=== PATIENT | male | born 1960 | race Caucasian/White ===

== ENCOUNTER 2017-07-06 11:19 | Emergency (ER) | payer MEDICAID ==
[~2017-07-06] VITALS: Ht 165.1 cm; Wt 75.0 kg
[~2017-07-06 11:19] MED LIST: LORT5TAB PO; SOMA350T PO; XANAX PO
[2017-07-06 11:49] VITALS: BP 120/66; PULSE 85; RESP 16; TEMP 97.8; O2SAT 100
--- NOTE | 2017-07-06 12:51 | PD ---
HPI Chief Complaint: Suicide Ideation/Attempt Time Seen by Provider: 12:42 Travel History International Travel<30 days: No Contact w/Intl Traveler<30days: No History of Present Illness HPI 57 YO M with PHM of CVA, HTN, chronic back pain presents to the ED under [facility] from [facility] for psychiatric evaluation. According to the Talya the patient stated that he wished to end his life with a gun but would not be able to do it because of problems with his hands. He also stated that if he went home to [place] he would fall into the water intentionally and round. On presentation the patient denies suicidal or homicidal ideation. He denies psychiatric history. He states he's never attempted suicide in the past. He states that "my family is trying to control my life" and that is why he is at the hospital. He denies somatic complaints. He endorses using "any" illicit drugs. He endorses chronic alcohol use. He is a current smoker. PFSH Past Medical History Arthritis: Yes Anxiety: Yes High Cholesterol: Yes Cerebrovascular Accident: Yes (HX OF 2 STROKES) Coronary Artery Disease: Yes Diminished Hearing: No Herniated Disk: Yes Hypertension: Yes Psychiatric: Yes Immunizations Current: Yes Past Surgical History Other Surgery: Yes (CORODID ARTERY SURGERY ) Social History Alcohol Use: Yes Tobacco Use: Yes Substance Use: Yes Allergies-Medications (Allergen,Severity, Reaction): Coded Allergies: No Known Allergies (Verified Adverse Reaction, Unknown, 07/06/17) Reported Meds & Prescriptions Reported Meds & Active Scripts Active Reported Soma (Carisoprodol) 350 Mg Tab 350 Mg PO TID Lortab 5/500 (Acetaminophen/Hydrocodone Bitart) 5 Mg/500 Mg Tab 1 Tab PO 5 TIMES A DAY FOR PAIN [Xanax] 2 Mg PO QID Review of Systems ROS Limitations: Other: (seen in ambulance [facility]) Except as stated in HPI: all other systems reviewed are Neg Physical Exam Exam Limitations: Other: (seen in the ambulance [facility], exam limited due to privacy issues) Narrative GENERAL: Well-nourished, well-developed white male in no acute distress. PSYCHIATRIC: No delusional thought processes. No hallucinations. SKIN: Focused skin assessment warm/dry. HEAD: Normocephalic. EYES: No scleral icterus. No injection or drainage. NECK: Supple, trachea midline. No JVD or lymphadenopathy. CARDIOVASCULAR: Regular rate and rhythm without murmurs, gallops, or rubs. RESPIRATORY: Breath sounds equal bilaterally. No accessory muscle use. GASTROINTESTINAL: Abdomen soft, non-tender, nondistended. Active bowel sounds MUSCULOSKELETAL: No cyanosis, or edema. NEURO: [place], baseline. Moves extremities spontaneously, residual right- sided weakness secondary to CVA. BACK: Nontender without obvious deformity. No CVA tenderness. Data Data Last Documented VS Vital Signs Date Time Temp Pulse Resp B/P (MAP) Pulse Ox O2 Delivery O2 Flow Rate FiO2 07/06/17 11:49 97.8 85 16 120/66 (84) 100 Room Air Orders Orders Complete Blood Count With Diff (07/06/17 11:49) Comprehensive Metabolic Panel (07/06/17 11:49) Thyroid Stimulating Hormone (07/06/17 11:49) Psych Screen (07/06/17 11:49) Drug Screen, Random Urine (07/06/17 11:49) Alcohol (Ethanol) (07/06/17 11:49) Diet Heart Healthy (07/06/17 Dinner) Labs Laboratory Tests Test 07/06/17 17:25 White Blood Count 8.3 TH/MM3 Red Blood Count 4.05 MIL/MM3 Hemoglobin 13.2 GM/DL Hematocrit 37.8 % Mean Corpuscular Volume 93.4 FL Mean Corpuscular Hemoglobin 32.5 PG Mean Corpuscular Hemoglobin Concent 34.8 % Red Cell Distribution Width 13.8 % Platelet Count 235 TH/MM3 Mean Platelet Volume 9.2 FL Neutrophils (%) (Auto) 53.2 % Lymphocytes (%) (Auto) 32.7 % Monocytes (%) (Auto) 9.1 % Eosinophils (%) (Auto) 4.6 % Basophils (%) (Auto) 0.4 % Neutrophils # (Auto) 4.4 TH/MM3 Lymphocytes # (Auto) 2.7 TH/MM3 Monocytes # (Auto) 0.7 TH/MM3 Eosinophils # (Auto) 0.4 TH/MM3 Basophils # (Auto) 0.0 TH/MM3 CBC Comment DIFF FINAL Differential Comment Blood Urea Nitrogen 8 MG/DL Creatinine 0.51 MG/DL Random Glucose 88 MG/DL Total Protein 6.9 GM/DL Albumin 3.2 GM/DL Calcium Level 8.6 MG/DL Alkaline Phosphatase 111 U/L Aspartate Amino Transf (AST/SGOT) 30 U/L Alanine Aminotransferase (ALT/SGPT) 27 U/L Total Bilirubin 0.9 MG/DL Sodium Level 138 MEQ/L Potassium Level 3.4 MEQ/L Chloride Level 103 MEQ/L Carbon Dioxide Level 27.8 MEQ/L Anion Gap 7 MEQ/L Estimat Glomerular Filtration Rate 169 ML/MIN Thyroid Stimulating Hormone 3rd Gen 0.515 uIU/ML Ethyl Alcohol Level LESS THAN 3 MG/DL MDM Medical Decision Making Medical Screen Exam Complete: Yes Emergency Medical Condition: Yes Differential Diagnosis Adjustment disorder versus anxiety versus bipolar versus depression versus dementia versus electrolyte disorder versus malingering versus mood disorder versus ODD versus psychosis versus PTSD versus schizophrenia versus schizoaffective disorder versus substance-induced mood disorder versus other Narrative Course 57 YO M with PHM of CVA, HTN, chronic back pain presents to the ED under [facility] for psychiatric evaluation. According to the Talya the patient stated that he wished to end his life with a gun but would not be able to do it because of problems with his hands. He also stated that if he went home to his house [place] he would fall into the water intentionally and round. On presentation the patient denies suicidal or homicidal ideation. He denies psychiatric history. He states he's never attempted suicide in the past. He states that "my family is trying to control my life" and that is why he is at the hospital. He denies somatic complaints. He endorses using "any" illicit drugs. He endorses chronic alcohol use. He is a current smoker. Vitals reviewed. On exam this is a white male in no acute distress. He does stutter and have some residual weakness on the right as compared to the left secondary to CVA but the exam is otherwise unremarkable. CBC, CMP, alcohol level without concerning abnormalities. The patient is cleared for psychiatric evaluation. Dulce Swanson Jul 06, 2017 12:51
[2017-07-06 18:17] LABS: AUTOMATED NEUTROPHIL # 4.4 TH/MM3 (1.8-7.7); BASOPHIL % 0.4 % (0.0-2.0); EOSINOPHIL # 0.4 TH/MM3 (0-0.4); EOSINOPHIL % 4.6 % (0.0-4.0); HEMATOCRIT 37.8 % (39.0-51.0); HEMOGLOBIN 13.2 GM/DL (13.0-17.0); LYMPH % 32.7 % (9.0-44.0); LYMPHOCYTE # 2.7 TH/MM3 (1.0-4.8); MEAN CELL VOLUME 93.4 FL (80.0-100.0); MEAN CORPUSCULAR HEMOGLOBIN 32.5 PG (27.0-34.0); MEAN CORPUSCULAR HGB CONC 34.8 % (32.0-36.0); MEAN PLATELET VOLUME 9.2 FL (7.0-11.0); MONO % 9.1 % (0.0-8.0); MONOCYTE # 0.7 TH/MM3 (0-0.9); NEUT % 53.2 % (16.0-70.0); PLATELET COUNT 235 TH/MM3 (150-450); RED BLOOD COUNT 4.05 MIL/MM3 (4.50-5.90); RED CELL DISTRIBUTION WIDTH 13.8 % (11.6-17.2); WHITE BLOOD COUNT 8.3 TH/MM3 (4.0-11.0)
[2017-07-06 18:37] LABS: ALBUMIN 3.2 GM/DL (3.4-5.0); ALT (GPT) 27 U/L (12-78); AST (GOT) 30 U/L (15-37); BICARBONATE 27.8 MEQ/L (21.0-32.0); BLOOD UREA NITROGEN 8 MG/DL (7-18); CALCIUM 8.6 MG/DL (8.5-10.1); CHLORIDE 103 MEQ/L (98-107); CREATININE 0.51 MG/DL (0.60-1.30); GLOMERULAR FILTRATION RATE 169 ML/MIN (>89); GLUCOSE,RANDOM 88 MG/DL (74-106); SODIUM (NA) 138 MEQ/L (136-145)
[2017-07-06 18:47] LABS: ALKALINE PHOSPHATASE 111 U/L (45-117); TOTAL BILIRUBIN ADULT 0.9 MG/DL (0.2-1.0); TOTAL PROTEIN 6.9 GM/DL (6.4-8.2)
[2017-07-07 03:16] VITALS: BP 131/77; PULSE 77; RESP 18; O2SAT 99
[2017-07-07] MEDS ORDERED: ACETAMINOPHEN 325 MG TAB PO ONE (04:15)
[2017-07-07 07:00] VITALS: BP 128/78; PULSE 72; RESP 16; TEMP 98.1; O2SAT 99
--- NOTE | 2017-07-07 09:51 | PD ---
Physical Exam Date Seen by Provider: Jul 07, 2017 Narrative This patient came in last night as a Babin Act. He has now been evaluated by psychiatry. They have diagnosed him with adjustment disorder with depression. The patient adamantly denies SI or HI. He states that his family made that up just to get him to come here. He has an appropriate affect and is making appropriate eye contact with the examiner. I do not have any reason to disbelieve him. He will be discharged. Data Data Last Documented VS Vital Signs Date Time Temp Pulse Resp B/P (MAP) Pulse Ox O2 Delivery O2 Flow Rate FiO2 07/07/17 07:00 98.1 72 16 128/78 (95) 99 Room Air Orders Orders Complete Blood Count With Diff (07/06/17 11:49) Comprehensive Metabolic Panel (07/06/17 11:49) Thyroid Stimulating Hormone (07/06/17 11:49) Psych Screen (07/06/17 11:49) Drug Screen, Random Urine (07/06/17 11:49) Alcohol (Ethanol) (07/06/17 11:49) Diet Heart Healthy (07/06/17 Dinner) Acetaminophen (Tylenol) (07/07/17 04:15) Diet Regular Basic (07/07/17 Breakfast) Labs Laboratory Tests Test 07/06/17 17:25 White Blood Count 8.3 TH/MM3 Red Blood Count 4.05 MIL/MM3 Hemoglobin 13.2 GM/DL Hematocrit 37.8 % Mean Corpuscular Volume 93.4 FL Mean Corpuscular Hemoglobin 32.5 PG Mean Corpuscular Hemoglobin Concent 34.8 % Red Cell Distribution Width 13.8 % Platelet Count 235 TH/MM3 Mean Platelet Volume 9.2 FL Neutrophils (%) (Auto) 53.2 % Lymphocytes (%) (Auto) 32.7 % Monocytes (%) (Auto) 9.1 % Eosinophils (%) (Auto) 4.6 % Basophils (%) (Auto) 0.4 % Neutrophils # (Auto) 4.4 TH/MM3 Lymphocytes # (Auto) 2.7 TH/MM3 Monocytes # (Auto) 0.7 TH/MM3 Eosinophils # (Auto) 0.4 TH/MM3 Basophils # (Auto) 0.0 TH/MM3 CBC Comment DIFF FINAL Differential Comment Blood Urea Nitrogen 8 MG/DL Creatinine 0.51 MG/DL Random Glucose 88 MG/DL Total Protein 6.9 GM/DL Albumin 3.2 GM/DL Calcium Level 8.6 MG/DL Alkaline Phosphatase 111 U/L Aspartate Amino Transf (AST/SGOT) 30 U/L Alanine Aminotransferase (ALT/SGPT) 27 U/L Total Bilirubin 0.9 MG/DL Sodium Level 138 MEQ/L Potassium Level 3.4 MEQ/L Chloride Level 103 MEQ/L Carbon Dioxide Level 27.8 MEQ/L Anion Gap 7 MEQ/L Estimat Glomerular Filtration Rate 169 ML/MIN Thyroid Stimulating Hormone 3rd Gen 0.515 uIU/ML Ethyl Alcohol Level LESS THAN 3 MG/DL MDM Supervised Visit with ALBERT: Alycia Urbina MD Jul 07, 2017 09:51
--- NOTE | 2017-07-07 11:28 | PD.PN.STU ---
Subjective Remarks This patient is 57 y/o male with no past suicide attempts, no past psychiatric hospitalizations, and a medical history of 4 strokes, chronic pain, CAD, COPD, hypertension, hyperlipidemia who is domiciled in [place] by himself, is with 1 kid and 4 grandkids, has been incarcerated for drug smuggling for 20 months, is unemployed, relies on [facility] for support. He was brought in under a babin act for a suicide attempt. The patient reports that he was having an argument with his uncle about helping him build something for his boat and the patient made a statement about not being able to shoot himself because his hands don't work from the stroke. The patient reports that he was joking and had no true suicidal ideations. Him and his uncle often fight about "things that don't matter". He reports that he was just getting really angry because he is trying to deal with the disabilities from his stroke. He reports that he loves fishing, loves his grandchildren, and loves "his god". Upon discharge he wants to take the bus home and get some rest. He was not intoxicated at the time, has been sleeping 6 hours a night, has a good appetite , denies feeling depressed, and denies audio or visual hallucinations. He is orientedx3 and shows no obvious cognitive deficits. The patient drinks a 4-pack of beer daily, uses meth "every now and then", and smokes about 1 pack of cigarettes daily. He denies any family psychiatric history. Objective Vitals Vital Signs Date Time Temp Pulse Resp B/P (MAP) Pulse Ox O2 Delivery O2 Flow Rate FiO2 07/07/17 07:00 98.1 72 16 128/78 (95) 99 Room Air 07/07/17 03:16 77 18 131/77 (95) 99 Room Air 07/06/17 11:49 97.8 85 16 120/66 (84) 100 Room Air Result Diagram: 07/06/17 1725 07/06/17 1725 Objective Remarks Mental Status Exam: Appearance: poor dentition, disheveled, poorly groomed Behavior: calm, cooperative, and comfortable in the room Speech: normal tone and rhythm, not rapid or pressured Thought Process: future oriented, goal driven, linear Thought Content: focused on his comorbid medical conditions Memory: intact, both remote and recent Cognition: adequate Mood: "happy" Affect: congruent with mood Insight: fair Judgement: fair Impulse control: fair Hallucinations: denies audio or visual Delusions: denies Ideations: denies suicidal or homicidal ideations Medications and IVs Current Medications Acetaminophen (Tylenol) 650 mg ONCE ONCE PO Last administered on 07/07/17at 06: 06; Start 07/07/17 at 04:15; Stop 07/07/17 at 04:16; Status DC A/P Assessment and Plan This patient is 57 y/o male with no past suicide attempts, no past psychiatric hospitalizations, and a medical history of 4 strokes, chronic pain, CAD, COPD, hypertension, hyperlipidemia who is domiciled in [place] by himself, is with 1 kid and 4 grandkids, has been incarcerated for drug smuggling for 20 months, relies on [facility] for support. He was brought in under a babin act for a suicide attempt. The patient made a statement that was interpreted as a suicide threat by his uncle who called the police. He denies ever wanting to commit suicide or having any suicidal ideations at the moment. He has a lot of supporting factors and things to live for such as his family, his home, fishing, and his mandaeism. He plans to head home after discharge to get some rest. Patient does not meet criteria for involuntary psychiatric admission t this moment. Babin act will be lifted. Héctor Roblero M3 Jul 07, 2017 11:28
--- NOTE | 2017-07-07 12:07 | PD.PSY.CON ---
Provisional Diagnosis Admission Date [place] I. Adjustment disorder with depressed mood, history of alcohol and amphetamine use disorder History of Present Illness Service Psychiatry Consult Requested By ER Reason for Consult Suicidal ideation Primary Care Physician Marylou Wong MD HPI This patient is 57 y/o male with no past suicide attempts, no past psychiatric hospitalizations, and a medical history of 4 strokes, chronic pain, CAD, COPD, hypertension, hyperlipidemia who is domiciled in [place] by himself, is with 1 kid and 4 grandkids, has been incarcerated for drug smuggling for 20 months, is unemployed, relies on [employer] for support. He was brought in under a babin act for a suicide attempt. The patient reports that he was having an argument with his uncle about helping him build something for his boat and the patient made a statement about not being able to shoot himself because his hands don't work from the stroke. The patient reports that he was joking and had no true suicidal ideations. Him and his uncle often fight about "things that don't matter". He reports that he was just getting really angry because he is trying to deal with the disabilities from his stroke. He reports that he loves fishing, loves his grandchildren, and loves "his god". Upon discharge he wants to take the bus home and get some rest. He was not intoxicated at the time, has been sleeping 6 hours a night, has a good appetite , denies feeling depressed, and denies audio or visual hallucinations. He is orientedx3 and shows no obvious cognitive deficits. The patient drinks a 4-pack of beer daily, uses meth "every now and then", and smokes about 1 pack of cigarettes daily. He denies any family psychiatric history. Review of Systems Constitutional: DENIES: Diaphoretic episodes, Fatigue, Fever, Weight gain, Weight loss, Chills, Dizziness, Change in appetite, Night Sweats Endocrine: DENIES: Heat/cold intolerance, Polydipsia, Polyuria, Polyphagia Eyes: DENIES: Blurred vision, Diplopia, Eye inflammation, Eye pain, Vision loss , Photosensitivity, Double Vision Ears, nose, mouth, throat: DENIES: Tinnitus, Hearing loss, Vertigo, Nasal discharge, Oral lesions, Throat pain, Hoarseness, Ear Pain, Running Nose, Epistaxis, Sinus Pain, Toothache, Odynophagia Respiratory: DENIES: Apneas, Cough, Snoring, Wheezing, Hemoptysis, Sputum production, Shortness of breath Cardiovascular: DENIES: Chest pain, Palpitations, Syncope, Dyspnea on Exertion , PND, Lower Extremity Edema, Orthopnea, Claudication Gastrointestinal: DENIES: Abdominal pain, Black stools, Bloody stools, Constipation, Diarrhea, Nausea, Vomiting, Difficulty Swallowing, Anorexia Genitourinary: DENIES: Sexual dysfunction, Urinary frequency, Urinary incontinence, Urgency, Hematuria, Dysuria, Nocturia, Penile Discharge, Testicular Pain, Testicular Swelling Musculoskeletal: DENIES: Joint pain, Muscle aches, Stiffness, Joint Swelling, Back pain, Neck pain Integumentary: DENIES: Abnormal pigmentation, Nail changes, Pruritus, Rash Hematologic/lymphatic: DENIES: Bruising, Lymphadenopathy Immunologic/allergic: DENIES: Eczema, Urticaria Neurologic: DENIES: Abnormal gait, Headache, Localized weakness, Paresthesias, Seizures, Speech Problems, Tremor, Poor Balance Psychiatric: DENIES: Anxiety, Confusion, Mood changes, Depression, Hallucinations, Agitation, Suicidal Ideation, Homicidal Ideation, Delusions Past Family Social History Coded Allergies: No Known Allergies (Verified Adverse Reaction, Unknown, 07/06/17) Reported Medications Carisoprodol (Soma) 350 Mg Tab, 350 MG PO TID 07/07/09 Hydrocodone-Acetaminophen (Lortab 5/500) 5 Mg/500 Mg Tab, 1 TAB PO 5 TIMES A DAY FOR PAIN 07/07/09 [Xanax] No Conflict Check, 2 MG PO QID 07/07/09 Physical Exam Vital Signs Vital Signs Date Time Temp Pulse Resp B/P (MAP) Pulse Ox O2 Delivery O2 Flow Rate FiO2 07/07/17 07:00 98.1 72 16 128/78 (95) 99 Room Air Lab Results Test 07/06/17 17:25 White Blood Count 8.3 TH/MM3 Red Blood Count 4.05 MIL/MM3 Hemoglobin 13.2 GM/DL Hematocrit 37.8 % Mean Corpuscular Volume 93.4 FL Mean Corpuscular Hemoglobin 32.5 PG Mean Corpuscular Hemoglobin Concent 34.8 % Red Cell Distribution Width 13.8 % Platelet Count 235 TH/MM3 Mean Platelet Volume 9.2 FL Neutrophils (%) (Auto) 53.2 % Lymphocytes (%) (Auto) 32.7 % Monocytes (%) (Auto) 9.1 % Eosinophils (%) (Auto) 4.6 % Basophils (%) (Auto) 0.4 % Neutrophils # (Auto) 4.4 TH/MM3 Lymphocytes # (Auto) 2.7 TH/MM3 Monocytes # (Auto) 0.7 TH/MM3 Eosinophils # (Auto) 0.4 TH/MM3 Basophils # (Auto) 0.0 TH/MM3 CBC Comment DIFF FINAL Differential Comment Blood Urea Nitrogen 8 MG/DL Creatinine 0.51 MG/DL Random Glucose 88 MG/DL Total Protein 6.9 GM/DL Albumin 3.2 GM/DL Calcium Level 8.6 MG/DL Alkaline Phosphatase 111 U/L Aspartate Amino Transf (AST/SGOT) 30 U/L Alanine Aminotransferase (ALT/SGPT) 27 U/L Total Bilirubin 0.9 MG/DL Sodium Level 138 MEQ/L Potassium Level 3.4 MEQ/L Chloride Level 103 MEQ/L Carbon Dioxide Level 27.8 MEQ/L Anion Gap 7 MEQ/L Estimat Glomerular Filtration Rate 169 ML/MIN Thyroid Stimulating Hormone 3rd Gen 0.515 uIU/ML Ethyl Alcohol Level LESS THAN 3 MG/DL Mental Status Examination Appearance: Appropriate Consciousness: Alert Orientation: x4 Motor Activity: Normal gait Speech: Unremarkable Language: Adequate Fund of Knowledge: Adequate Attention and Concentration: Adequate Memory: Unremarkable Mood: Appropriate Affect: Appropriate Thought Process & Associations: Intact Thought Content: Appropriate Hallucination Type: None Delusion Type: None Suicidal Ideation: No Suicidal Plan: No Suicidal Intention: No Homicidal Ideation: No Homicidal Plan: No Homicidal Intention: No Insight: Adequate Judgment: Adequate Assessment & Plan Problem List: (1) Adjustment disorder with depressed mood ICD Codes: F43.21 - Adjustment disorder with depressed mood Assessment & Plan: This patient is 57 y/o male with no past suicide attempts, no past psychiatric hospitalizations, and a medical history of 4 strokes, chronic pain, CAD, COPD, hypertension, hyperlipidemia who is domiciled in [place] by himself, is with 1 kid and 4 grandkids, has been incarcerated for drug smuggling for 20 months, relies on [facility] for support. He was brought in under a babin act for a suicide attempt. The patient made a statement that was interpreted as a suicide threat by his uncle who called the police. He denies ever wanting to commit suicide or having any suicidal ideations at the moment. He has a lot of supporting factors and things to live for such as his family, his home, fishing, and his caodaism. He plans to head home after discharge to get some rest. Patient does not meet criteria for involuntary psychiatric admission t this moment. Babin act will be lifted. Assessment & Plan Estimated LOS: days Asher Valle MD Jul 07, 2017 12:07
== END 2017-07-07 10:17 | disposition home or self-care (01) ==
LOC: NEDAMB 11:19 → NEPD 07-07 10:17
DX: F43.21 Adjustment disorder with depressed mood (principal); F17.210 Nicotine dependence, cigarettes, uncomplicated; I25.10 Atherosclerotic heart disease of native coronary artery without angina pectoris; I10 Essential (primary) hypertension; Z79.899 Other long term (current) drug therapy
CPT/HCPCS: 80053; 80307; 84443; 85025; 99283

== ENCOUNTER 2017-09-02 19:19 | Emergency (ER) | payer MEDICAID ==
[2017-09-03 00:14] LABS: ALCOHOL LESS THAN 3 MG/DL (0-5)
[2017-09-03 07:46] LABS: AMPHETAMINE, URINE POS (NEG); BARBITURATES, URINE NEG (NEG); BENZODIAZEPINE,URINE NEG (NEG); CANNABINOIDS, URINE NEG (NEG); COCAINE, URINE NEG (NEG)
[2017-09-03] MEDS: OXYBUTYNIN CHLORIDE 5 MG TAB PO (14:45)
[2017-09-03] MEDS: LISINOPRIL 5 MG TAB PO (15:09)
== END 2017-09-03 15:50 ==
LOC: NEPD 09-03 15:50
DX: F15.10 Other stimulant abuse, uncomplicated (principal); F41.9 Anxiety disorder, unspecified; Z59.0 Homelessness; Z72.0 Tobacco use; Z79.899 Other long term (current) drug therapy
CPT/HCPCS: 80307; 99285